=== PATIENT | female | born 1980 | race Two or more races ===

== ENCOUNTER 2016-07-01 09:42 | Emergency (ER) | payer MEDICAID ==
[2016-07-01 09:55] VITALS: BP 126/91
--- NOTE | 2016-07-01 10:24 | UC ---
Throat Pain/Nasal Collins HPI - HPI Summary HPI Summary: complaint of nasal congestion and cough that started approx 1 month ago sore throat pressure in her face and forehead has been increasing over the last week intermittent headaches productive cough denies ear pain, fever and chills taking tessalon for cough with some relief - History of Current Complaint Chief Complaint: UCRespiratory Stated Complaint: SINUS,SORE THROAT,COUGH Time Seen by Provider: 07/01/16 10:18 Hx Obtained From: Patient Hx Last Menstrual Period: 06/09/16 - Allergies/Home Medications Allergies/Adverse Reactions: Allergies Allergy/AdvReac Type Severity Reaction Status Date / Time No Known Allergies Allergy Verified 07/01/16 09:56 PMH/Surg Hx/FS Hx/Imm Hx Previously Healthy: Yes - Surgical History Surgical History: Yes Surgery Procedure, Year, and Place: brain surgery for blot clot 2014 - Social History Occupation: Employed Full-time Lives: With Family Alcohol Use: None Substance Use Type: None Smoking Status (MU): Never Smoked Tobacco Review of Systems Constitutional: Negative Skin: Negative Eyes: Negative ENT: Sore Throat, Nasal Discharge Respiratory: Cough Cardiovascular: Negative Gastrointestinal: Negative Genitourinary: Negative Motor: Negative Neurovascular: Negative Musculoskeletal: Negative Neurological: Negative Psychological: Negative All Other Systems Reviewed And Are Negative: Yes Physical Exam Triage Information Reviewed: Yes Appearance: No Pain Distress, Well-Nourished Vital Signs: Initial Vital Signs Temp 97.4 F 07/01/16 09:47 Pulse 89 07/01/16 09:47 Resp 16 07/01/16 09:47 BP 126/91 07/01/16 09:47 Pulse Ox 99 07/01/16 09:47 Vital Signs Reviewed: Yes Eyes: Positive: Conjunctiva Clear ENT: Positive: Pharyngeal erythema, Nasal congestion, Nasal drainage, TM bulging , Other: - frontal and maxillary sinus tenderness. Negative: TM red Neck: Positive: No Lymphadenopathy Respiratory: Positive: Lungs clear, Normal breath sounds, No respiratory distress, No accessory muscle use Cardiovascular: Positive: RRR, No Murmur, Pulses Normal Abdomen Description: Positive: Nontender, Soft Bowel Sounds: Positive: Present Musculoskeletal: Positive: No Edema Neurological: Positive: Alert Psychological Exam: Normal Skin Exam: Normal Throat Pain/Nasal Course/Dx - Differential Dx/Diagnosis Differential Diagnosis/HQI/PQRI: Pharyngitis, Sinusitis, URI Provider Diagnoses: sinusitis Discharge - Discharge Plan Condition: Stable Disposition: HOME Prescriptions: Amoxicillin/Clavulanate TAB* [Augmentin TAB 875*] 875 mg PO BID #20 tab Benzonatate CAP* [Tessalon CAP*] 100 mg PO TID PRN #30 cap PRN Reason: Cough Patient Education Materials: Sinusitis (ED) Referrals: No Primary Care Phys,NOPCP [Primary Care Provider] - Additional Instructions: SINUSITIS What is Sinusitis? Sinusitis is inflammation or infection of the lining of the sinuses behind the bones in your cheeks or forehead. Sinusitis may occur following a common cold, flu, or other infection; allergies; a tooth infection that spreads to the sinuses; swimming in contaminated water; pressure changes in airplanes at high altitudes; violent sneezing or nose blowing or smoking or breathing other peoples smoke. Symptoms Might Include: Nasal Congestion Sneezing Watery eyes, eye irritation, or eye itching Headaches Pressure in the cheeks Wheezing Trouble smelling Sore throat and coughing may occur Treatment Recommendations: Take medicines as prescribed until completely gone. Drink plenty of fluids. Use saline nose spray to thin the mucous and help the sinuses drain. Use a vaporizer or humidifier. Apply warm compresses to the face or forehead several times a day for 10 to 20 minutes. Call Your Doctor or Return Here IF: Your pain increases during treatment. You develop a high temperature. You develop unusual swelling around the eyes. You have difficulty with your vision. You develop a severe headache, earache, or toothache. You develop increased fever or fever that does not respond to medication such as Tylenol?. You have difficulty breathing or catching your breath. You begin to have any other new symptoms that worry you.
== END 2016-07-01 10:49 | disposition home or self-care (01) ==
LOC: UCCORT 09:42
DX: J32.9 Chronic sinusitis, unspecified (principal)
CPT/HCPCS: 99202; G0463

== ENCOUNTER 2016-07-17 12:02 | Emergency (ER) | payer MEDICAID ==
[2016-07-17 12:34] VITALS: BP 134/82
--- NOTE | 2016-07-17 12:55 | UC ---
Throat Pain/Nasal Collins HPI - HPI Summary HPI Summary: complaint of nasal congestion for over a month constantly clear secretions denies fever and cough denies sore throat, headaches treated for sinusitis with antibiotic- improvement in sinus symptoms for approx 1 week taking ricardo-seltzer and sudafed - History of Current Complaint Chief Complaint: UCRespiratory Stated Complaint: SINUS Time Seen by Provider: 07/17/16 12:42 Hx Obtained From: Patient Hx Last Menstrual Period: 06/09/16 - Allergies/Home Medications Allergies/Adverse Reactions: Allergies Allergy/AdvReac Type Severity Reaction Status Date / Time etoh Allergy Fatigue Uncoded 07/17/16 12:34 PMH/Surg Hx/FS Hx/Imm Hx Previously Healthy: No - sinusitis - Surgical History Surgical History: Yes Surgery Procedure, Year, and Place: brain surgery for blot clot 2014 - Family History Known Family History: Negative: Cardiac Disease, Hypertension, Diabetes - Social History Occupation: Employed Full-time Lives: With Family Alcohol Use: None Substance Use Type: None Smoking Status (MU): Never Smoked Tobacco Review of Systems Constitutional: Negative Skin: Negative Eyes: Negative ENT: Nasal Discharge Respiratory: Negative Cardiovascular: Negative Gastrointestinal: Negative Genitourinary: Negative Motor: Negative Neurovascular: Negative Musculoskeletal: Negative Neurological: Negative Psychological: Negative All Other Systems Reviewed And Are Negative: Yes Physical Exam Triage Information Reviewed: Yes Appearance: No Pain Distress, Well-Nourished Vital Signs: Initial Vital Signs Temp 98.5 F 07/17/16 12:21 Pulse 81 07/17/16 12:21 Resp 20 07/17/16 12:21 BP 134/82 07/17/16 12:21 Pulse Ox 98 07/17/16 12:21 Vital Signs Reviewed: Yes Eyes: Positive: Conjunctiva Clear ENT: Positive: Pharynx normal, Nasal congestion, Nasal drainage, TMs normal Neck: Positive: No Lymphadenopathy Respiratory: Positive: Lungs clear, Normal breath sounds, No respiratory distress Cardiovascular: Positive: RRR, No Murmur Abdomen Description: Positive: Nontender, Soft Bowel Sounds: Positive: Present Musculoskeletal: Positive: No Edema Neurological: Positive: Alert Psychological Exam: Normal Skin Exam: Normal Throat Pain/Nasal Course/Dx - Differential Dx/Diagnosis Differential Diagnosis/HQI/PQRI: URI, Other - seasonal allergies Provider Diagnoses: allergic rhinitis Discharge - Discharge Plan Condition: Stable Disposition: HOME Prescriptions: Loratadine [Claritin 10 MG CAP] 10 mg PO DAILY #30 cap Patient Education Materials: Allergic Rhinitis (ED) Referrals: No Primary Care Phys,NOPCP [Primary Care Provider] - [facility] [facility] [place]] Additional Instructions: start medication as prescribed please [place] [facility] [place] to find a primary care provider please followup with primary care or return to urgent care if your symptoms do not improve
== END 2016-07-17 13:21 | disposition home or self-care (01) ==
LOC: UCCORT 12:02
DX: J30.9 Allergic rhinitis, unspecified (principal)
CPT/HCPCS: 99212; G0463

== ENCOUNTER 2017-06-12 13:25 | Emergency (ER) | payer MEDICAID, OTHER ==
[2017-06-12 16:58] VITALS: BP 120/89
--- NOTE | 2017-06-12 17:34 | UC ---
Respiratory Complaint HPI - HPI Summary HPI Summary: chest congestion x 1 week, cough + wheeze +white/yellow sputum head congestion, sinus pressure no ear pain + PND aDvil cough and sinus, mucinex - little improvement - last 2am no rashes no n/v/d no travel + flu vaccine LMP 05/22/2017 Pt's medications reviewed - History of Current Complaint Chief Complaint: UCRespiratory Stated Complaint: CONGESTION, SINUSES, COUGH Time Seen by Provider: 06/12/17 17:18 Hx Obtained From: Patient, Family/Shank Threader Hx Last Menstrual Period: 05/22/17 Onset/Duration: Gradual Onset, Lasting Weeks Timing: Constant Severity Initially: Mild Severity Currently: Moderate Pain Intensity: 8 Pain Scale Used: 0-10 Numeric Character: Cough: Productive Associated Signs And Symptoms: Positive: Wheezing, Nasal Congestion, Sinus Discomfort - Allergies/Home Medications Allergies/Adverse Reactions: Allergies Allergy/AdvReac Type Severity Reaction Status Date / Time etoh Allergy Fatigue Uncoded 06/12/17 16:46 Home Medications: Home Medications Guaifenesin/Dextromethorphan [Mucinex Dm Maximum Streng 60-1200 mg] 1 tab PO ONCE PRN 06/12/17 [History Confirmed 06/12/17] Ibuprofen TAB* [Advil TAB*] 200 mg PO Q4H PRN 06/12/17 [History Confirmed ] PMH/Surg Hx/FS Hx/Imm Hx Previously Healthy: Yes - Surgical History Surgical History: Yes Surgery Procedure, Year, and Place: brain surgery 2014 [facility] - Family History Known Family History: Negative: Cardiac Disease, Hypertension, Diabetes, Seizure Disorder - Social History Occupation: Employed Full-time Lives: With Family Alcohol Use: None Substance Use Type: None Smoking Status (MU): Never Smoked Tobacco Review of Systems Constitutional: Fever, Fatigue Skin: Negative Eyes: Negative ENT: Nasal Discharge, Sinus Congestion Respiratory: Cough Cardiovascular: Negative Gastrointestinal: Negative Genitourinary: Negative All Other Systems Reviewed And Are Negative: Yes Physical Exam Triage Information Reviewed: Yes Appearance: Well-Appearing, No Pain Distress, Well-Nourished, Other: - intermittent cough Vital Signs: Initial Vital Signs Temp 98.3 F 06/12/17 16:50 Pulse 82 06/12/17 16:50 Resp 20 06/12/17 16:50 BP 120/89 06/12/17 16:50 Pulse Ox 99 06/12/17 16:50 Vital Signs Reviewed: Yes Eye Exam: Normal Eyes: Positive: Conjunctiva Clear ENT: Positive: Hearing grossly normal, Nasal congestion, Other - TMx 2 clear turbinates boggy and inflammed +PND + erythema, no exudate uvula midline Dental Exam: Normal Neck exam: Normal Neck: Positive: Supple, Nontender, No Lymphadenopathy Respiratory Exam: Normal Respiratory: Positive: No respiratory distress, No accessory muscle use, Rhonchi - rhonchi left base, few scattered wheeze Cardiovascular Exam: Normal Cardiovascular: Positive: RRR, No Murmur, Pulses Normal Abdominal Exam: Normal Abdomen Description: Positive: Nontender, No Organomegaly, Soft Bowel Sounds: Positive: Present Musculoskeletal Exam: Normal Musculoskeletal: Positive: Strength Intact Neurological Exam: Normal Neurological: Positive: Alert Psychological Exam: Normal Skin Exam: Normal UC Diagnostic Evaluation - Laboratory O2 Sat by Pulse Oximetry: 99 - Radiology Radiology Interpretation Completed By: Radiologist - no acute process Re-Evaluation - Re-Evaluation First Eval Change: Improved - pt improved following neb no w/r reviewed tx with pt Respiratory Course/Dx - Course Course Of Treatment: pt with 1 week productive cough, sinus congestion. on exam scattered wheeze, rhonci left base. neb. cxr. secretion precaution. hydrate. motrin/apap. OTC cough meds. abx - Differential Dx/Diagnosis Provider Diagnoses: acute bronchitis Discharge - Discharge Plan Condition: Stable Disposition: HOME Prescriptions: Amoxicillin PO (*) [Amoxicillin 875 MG (*)] 875 mg PO BID #20 tab Fluticasone NASAL SPRAY 50MCG* [Flonase NASAL SPRAY 50MCG*] 2 spray BOTH NARES DAILY #1 btl Patient Education Materials: Acute Bronchitis (ED) Referrals: No Primary Care Phys,NOPCP [Primary Care Provider] - Additional Instructions: - Stay well hydrated. Drink plenty of non-alcoholic, non-caffinated beverages. - Alternate ibuprofen (Advil, Motrin) 600mg and Tylenol every 3 hours for pain or fever. Take with food. Do NOT take for more than 4-5 days. - okay to gargle and spit with warm salt water, 2-3 times a day for sore throat. cold fluids (popsicle) may be soothing to your throat - These infections are spread by secretions - do NOT share eating or drinking utensils - clean items you share with other people such as cell phones, computer mouse, TV remote, computer tablets, etc. After you have taken antibiotics for 3 days, change your toothbrush and your pillowcase. - use nasal spray as prescribed - get plenty of restful sleep - humidify the air in the room where you sleep - boil water, run a hot steam shower, vaporizer, cups of water by heat register - okay to take over the counter decongestant and cough medication - contact your doctor, return here, or go to the emergency department with questions or concerns
[2017-06-12] MEDS ORDERED: Albuterol/Ipratropium NEB.SOL* Albuterol 2.5 MG/Ipratropium 0.5 MG 3 ML INH ONE (17:43)
--- NOTE | 2017-06-12 18:29 | RAD ---
INDICATION: Cough COMPARISON: None TECHNIQUE: PA and lateral views of the chest were obtained. FINDINGS: The heart and mediastinum are normal in size and contour. The lungs are grossly clear. There is no evidence of large pleural effusion. Visualized bones are normal for the patient's age. There is no radiographic evidence of free air beneath the diaphragm IMPRESSION: No radiographic evidence of acute cardiopulmonary disease.
== END 2017-06-12 18:50 | disposition home or self-care (01) ==
LOC: UCCORT 13:25
DX: J20.9 Acute bronchitis, unspecified (principal)
CPT/HCPCS: 71046; 99212; A9270-GY; G0463

== ENCOUNTER 2017-07-09 14:48 | Emergency (ER) | payer OTHER ==
[2017-07-09 15:33] VITALS: BP 121/85
--- NOTE | 2017-07-09 15:49 | UC ---
Respiratory Complaint HPI - HPI Summary HPI Summary: 37 yo female presents here wishing to thank Dr. Small for curing her sinus infection She is asymptomatic but wants to have her lungs examined - History of Current Complaint Chief Complaint: UCGeneralIllness Stated Complaint: RECHECK NASAL DRAINAGE Time Seen by Provider: 07/09/17 15:38 Hx Obtained From: Patient Hx Last Menstrual Period: 06/13/17 Onset/Duration: Resolved, Other Timing: Constant - NA Pain Intensity: 0 Pain Scale Used: 0-10 Numeric Associated Signs And Symptoms: Positive: Negative - Allergies/Home Medications Allergies/Adverse Reactions: Allergies Allergy/AdvReac Type Severity Reaction Status Date / Time etoh Allergy Fatigue Uncoded 07/09/17 15:33 PMH/Surg Hx/FS Hx/Imm Hx Previously Healthy: Yes Respiratory History: Asthma - Surgical History Surgical History: Yes Surgery Procedure, Year, and Place: brain surgery 2014 [facility] - Family History Known Family History: Negative: Cardiac Disease, Hypertension, Diabetes, Seizure Disorder - Social History Alcohol Use: None Substance Use Type: None Smoking Status (MU): Never Smoked Tobacco Review of Systems Constitutional: Negative Skin: Negative Eyes: Negative ENT: Negative Respiratory: Negative Cardiovascular: Negative Gastrointestinal: Negative Genitourinary: Negative Motor: Negative Neurovascular: Negative Musculoskeletal: Negative Neurological: Negative Psychological: Negative Is Patient Immunocompromised?: No All Other Systems Reviewed And Are Negative: Yes Physical Exam Triage Information Reviewed: Yes Appearance: Well-Appearing, No Pain Distress, Well-Nourished Vital Signs: Initial Vital Signs Temp 98.3 F 07/09/17 15:28 Pulse 69 07/09/17 15:28 Resp 18 07/09/17 15:28 BP 121/85 07/09/17 15:28 Pulse Ox 100 07/09/17 15:28 Vital Signs Reviewed: Yes Eyes: Positive: Conjunctiva Clear ENT: Positive: Hearing grossly normal, Pharynx normal, TMs normal, Uvula midline. Negative: Nasal congestion, Nasal drainage, TM red, Tonsillar exudate , Trismus, Muffled voice, Hoarse voice, Dental tenderness, Sinus tenderness Neck: Positive: Supple, Nontender, No Lymphadenopathy Respiratory: Positive: Lungs clear, Normal breath sounds, No respiratory distress, No accessory muscle use Cardiovascular: Positive: RRR, No Murmur Musculoskeletal: Positive: ROM Intact, No Edema Neurological: Positive: Alert Psychological Exam: Normal Skin Exam: Normal UC Diagnostic Evaluation - Laboratory O2 Sat by Pulse Oximetry: 100 - normal not hypoxic Respiratory Course/Dx - Differential Dx/Diagnosis Provider Diagnoses: recheck sinusitis. normal exam Discharge - Discharge Plan Condition: Stable Disposition: HOME Referrals: No Primary Care Phys,NOPCP [Primary Care Provider] - Additional Instructions: call for any questions return for any problems I am glad you are feeling better See list to help you find a local primary care provider
== END 2017-07-09 15:47 | disposition home or self-care (01) ==
LOC: UCCORT 14:48
DX: Z09 Encounter for follow-up examination after completed treatment for conditions other than malignant neoplasm (principal); J32.9 Chronic sinusitis, unspecified; J45.909 Unspecified asthma, uncomplicated
CPT/HCPCS: 99211; G0463

== ENCOUNTER 2018-04-18 14:18 | Emergency (ER) | payer OTHER ==
[2018-04-18 14:47] VITALS: BP 131/79
--- NOTE | 2018-04-18 15:34 | UC ---
Skin Complaint HPI - HPI Summary HPI Summary: 38 year old female presents with pruritic rash to her bilateral hands and forearms on 04/14/2018 after applying a lotion. States she had a reaction to the lotion previously and forgot. States has been applying OTC hydrocortisone cream to the affected areas without relief. Denies swelling of the lips, tongue , throat, or difficulty breathing. - History of Current Complaint Chief Complaint: UCSkin Time Seen by Provider: 04/18/18 15:07 Stated Complaint: SKIN CONCERN Hx Obtained From: Patient Hx Last Menstrual Period: 04/11/18 Pain Intensity: 0 - Allergy/Home Medications Allergies/Adverse Reactions: Allergies Allergy/AdvReac Type Severity Reaction Status Date / Time etoh Allergy Fatigue Uncoded 04/18/18 14:47 Home Medications: Home Medications diPHENhydraMINE PO* [Benadryl PO 50 MG CAP*] 50 mg PO Q6H PRN 04/18/18 [History Confirmed 04/18/18] PMH/Surg Hx/FS Hx/Imm Hx Previously Healthy: Yes - Denies significant PMH - Surgical History Surgical History: Yes Surgery Procedure, Year, and Place: brain surgery 2015 [facility] - Family History Known Family History: Positive: Non-Contributory - Social History Occupation: Employed Full-time Lives: With Family Alcohol Use: None Substance Use Type: None Smoking Status (MU): Never Smoked Tobacco Review of Systems All Other Systems Reviewed And Are Negative: Yes Constitutional: Negative: Fever, Chills Skin: Positive: Rash - See HPI Respiratory: Negative: Shortness Of Breath, Cough Cardiovascular: Negative: Palpitations, Chest Pain Is Patient Immunocompromised?: No Physical Exam - Summary Physical Exam Summary: GENERAL APPEARANCE: Well developed, well nourished, alert and cooperative, and appears to be in no acute distress. NOSE: No nasal discharge. THROAT: Oral cavity and pharynx normal. No inflammation, swelling, exudate, or lesions. Teeth and gingiva in good general condition. Airway intact. NECK: Neck supple, non-tender without lymphadenopathy. CARDIAC: Normal S1 and S2. No S3, S4 or murmurs. Rhythm is regular. There is no peripheral edema, cyanosis or pallor. Extremities are warm and well perfused. Capillary refill is less than 2 seconds. LUNGS: Clear to auscultation and percussion without rales, rhonchi, wheezing or diminished breath sounds. SKIN: Pruritic, erythematous, maculopapular rash to bilateral hands that extends to her bilateral mid forearms. Triage Information Reviewed: Yes Vital Signs: Initial Vital Signs Temp 99.1 F 04/18/18 14:43 Pulse 84 04/18/18 14:43 Resp 16 04/18/18 14:43 BP 131/79 04/18/18 14:43 Pulse Ox 100 04/18/18 14:43 Vital Signs Reviewed: Yes Course/Dx - Course Course Of Treatment: 38 year old female presents with pruritic rash to her bilateral hands and forearms on 04/14/2018 after applying a lotion. States she had a reaction to the lotion previously and forgot. States has been applying OTC hydrocortisone cream to the affected areas without relief. Denies swelling of the lips, tongue, throat, or difficulty breathing. Afebrile. VSS. Exam revealed a maculopapular rash to her bilateral hands and that extended up to her bilateral mid forearms consistent with a contact dermatitis. Airway patent. Will treat with a 3 day course of prednisone 40 mg, provide her with a topical steroid for continued use after completing the prednisone, and recommend an OTC non-drowsy antihistamine to help with the itching. She is to follow up with her PCP if symptoms persist. Warning symptoms reviewed with patient. Verbalizes understanding and agrees with POC. - Differential Diagnoses - Skin Complaint Differential Diagnoses: Allergic Reaction, Cellulitis, Contact Dermatitis, Local Allergic Reaction, MRSA, Urticaria - Diagnoses Provider Diagnosis: Contact dermatitis Discharge - Sign-Out/Discharge Documenting (check all that apply): Patient Departure All imaging exams completed and their final reports reviewed: No Studies - Discharge Plan Condition: Stable Disposition: HOME Prescriptions: Clobetasol Propionate/Emoll [Clobetasol Propionate Emo] 0.05 % EX BID #1 tube predniSONE TAB* [Deltasone 20 MG TAB*] 40 mg PO DAILY #6 tab Patient Education Materials: Contact Dermatitis (ED) Referrals: No Primary Care Phys,NOPCP [Primary Care Provider] - Additional Instructions: Do not use the your lotion any more as your rash appears to be an allergic reaction to it. Start prednisone 40 mg once a day for 3 days. After you have completed the prednisone you may use clobetasol cream twice a day. Do not use for more than 2 weeks. Take an over the counter non-drowsy antihistamine such as Claritin, Zyrtec, or Chelsey to help with the itching. Follow up with your primary care provider is symptoms persist. Seek immediate medical attention in the emergency room if you develop swelling of the lips, tongue, or throat, have difficulty swallowing, difficulty breathing , or any worsening of symptoms. - Billing Disposition and Condition Condition: STABLE Disposition: Home
== END 2018-04-18 15:55 | disposition home or self-care (01) ==
LOC: UCCORT 14:18
DX: L25.8 Unspecified contact dermatitis due to other agents (principal)
CPT/HCPCS: 99212; G0463